=== PATIENT | male | born 1995 | race Asian ===

== ENCOUNTER 2023-12-07 14:37 | Emergency (ER) | payer OTHER ==
[~2023-12-07] VITALS: Ht 167.6 cm; Wt 77.1 kg
[2023-12-07 14:48] VITALS: BP_SYST 132; PULSE 89; RESP 18; TEMP 98.3; O2SAT 95
[2023-12-07] MEDS: LORazepam 1 MG TABLET PO ONE (15:44)
[2023-12-07] MEDS ORDERED: levETIRAcetam 500 MG TABLET ONE (15:46)
[2023-12-07] MEDS: levETIRAcetam 500 MG TABLET PO ONE (15:48)
[2023-12-07 15:53] VITALS: BP_SYST 132; PULSE 89; RESP 18; TEMP 98.3; O2SAT 95
== END 2023-12-07 15:52 ==
LOC: SED 14:37
DX: R56.9 Unspecified convulsions (principal)
CPT/HCPCS: 99283